=== PATIENT | male | born 1995 | race Caucasian/White ===

== ENCOUNTER 2022-06-29 08:06 | Inpatient (IN) ==
[2022-06-29] MEDS ORDERED: Lorazepam PYXIS KEY PRN (09:44)
[2022-06-29] MEDS ORDERED: LORazepam 2 mg VIAL 1 ml IM ONE (09:44)
[2022-06-29] MEDS ORDERED: Haloperidol 5 mg/ml SDV IV/IM 5 MG/ML AMP IM ONE (09:44)
[2022-06-29 09:51] LABS: Urine Benzodiazepine Screen None Detected (None Detect); Urine Cannabinoids Screen Presumptive Positive (None Detect); Urine Opiates Screen None Detected (None Detect)
[2022-06-29 10:16] LABS: Urine Appearance Clear; Urine Bilirubin Negative (Negative); Urine Blood Negative (Negative); Urine Color Yellow; Urine Glucose Negative (Negative); Urine Ketones Trace (Negative); Urine Nitrite Negative (Negative); Urine Protein Negative (Negative); Urine Urobilinogen Negative (Negative)
[2022-06-29 11:50] LABS: ABS Basophils 0.1 10^3/ul (0-0.2); ABS Eosinophils 0.1 10^3/ul (0-0.6); ABS Lymphocytes 2.4 10^3/ul (1.0-4.8); ABS Monocytes 0.9 10^3/ul (0-0.8); ABS Neutrophils 7.2 10^3/ul (1.5-7.7); Eosinophil % 0.5 %; Hematocrit 42 % (42-52); Hemoglobin 13.7 g/dL (14.0-18.0); Lymphocyte % 22.4 %; Mean Corpuscular HGB Conc 33 g/dL (31-36); Mean Corpuscular Hemoglobin 28 pg (27-31); Mean Corpuscular Volume 85 fL (80-94); Platelet Count 249 10^3/uL (150-450); Red Blood Count 4.87 10^6 /uL (4.18-5.48); Red Cell Distribution Width 14 % (10-15); White Blood Count 10.6 10^3/uL (3.5-10.8)
[2022-06-29 12:40] LABS: ALT 28 U/L (7-52); AST 26 U/L (13-39); Acetaminophen < 15 mcg/mL; Albumin 4.1 g/dL (3.2-5.2); Albumin/Globulin Ratio 1.9 (1-3); Alcohol, S < 13 mg/dL (<13); Alkaline Phosphatase 72 U/L (35-149); Anion Gap 10 mmol/L (2-11); Blood Urea Nitrogen 20 mg/dL (6-24); CO2 Carbon Dioxide 23 mmol/L (22-32); Calcium 9.4 mg/dL (8.6-10.3); Chloride 103 mmol/L (101-111); Globulin 2.2 g/dL (2-4); Glucose 83 mg/dL (70-100); Potassium 4.2 mmol/L (3.5-5.0); Salicylate < 2.50 mg/dL (<30); Sodium 136 mmol/L (135-145); Total Protein 6.3 g/dL (6.4-8.9); eGFR CKD-EPI 122.7 (>60)
[2022-06-29 12:55] LABS: TSH Ultra Thyroid Stim Horm 1.91 mcIU/mL (0.34-5.60)
[2022-06-29] MEDS ORDERED: Al Hydrox/Mg Hydrox/Simet LIQ 30 ML UDC PO PRN (13:28)
[2022-06-30 08:15] LABS: HDL Cholesterol 48.7 mg/dL
[2022-06-30] MEDS: Nicotine PATCH 21 MG/24 HR PATCH TRANSDERM SCH (09:04)
[2022-06-30] MEDS: Nicotine GUM 4MG FRUIT FLAVOR PO PRN ×2 (09:05→12:45)
[2022-06-30] MEDS: Vitamin THERAPEUTIC TAB PO SCH (09:24)
[2022-06-30] MEDS: Nicotine Lozenge mini 2 MG LOZNG.MINI MT PRN ×2 (15:00→18:01)
[2022-07-01] MEDS: Nicotine Lozenge mini 2 MG LOZNG.MINI MT PRN ×4 (04:03→16:25)
[2022-07-01] MEDS: Nicotine PATCH 21 MG/24 HR PATCH TRANSDERM SCH (07:34)
[2022-07-01] MEDS: Vitamin THERAPEUTIC TAB PO SCH (07:36)
[2022-07-02] MEDS: Nicotine Lozenge mini 2 MG LOZNG.MINI MT PRN ×3 (07:14→11:33)
[2022-07-02] MEDS: Nicotine PATCH 21 MG/24 HR PATCH TRANSDERM SCH (07:27)
[2022-07-02] MEDS: Vitamin THERAPEUTIC TAB PO SCH (07:50)
[2022-07-02] MEDS: Nicotine GUM 2MG FRUIT FLAVOR PO PRN ×3 (13:10→19:44)
[2022-07-03] MEDS: Nicotine GUM 2MG FRUIT FLAVOR PO PRN ×3 (02:24→13:39)
[2022-07-03] MEDS: Nicotine PATCH 21 MG/24 HR PATCH TRANSDERM SCH (08:25)
[2022-07-03] MEDS: Vitamin THERAPEUTIC TAB PO SCH (08:26)
[2022-07-03 09:31] VITALS: BP 141/95
== END 2022-07-03 16:33 | disposition home or self-care (01) | DRG 750 ==
LOC: ED 08:06 → EDHOLD 12:41 → BSU 14:32
PROVIDERS: ADMIT Psychiatry & Neurology Psychiatry; ATTEND Student in an Organized Health Care Education/Training Program